=== PATIENT | male | born 1995 | race Caucasian/White ===

== ENCOUNTER 2022-03-26 10:59 | Emergency (ER) | payer MEDICAID, SELFPAY ==
[2022-03-26 11:03] VITALS: BP 135/89; PULSE 78; RESP 18; TEMP 36.7; O2SAT 99
[2022-03-26 11:47] LABS: Influenza A QL RT-PCR Negative (Negative); Influenza B QL RT-PCR Negative (Negative); RSV RNA, RT-PCR Negative (Negative); SARS-CoV-2 RNA PCR Negative
[2022-03-26] MEDS: SODIUM CHLORIDE 0.9% IV 1,000 ML 999 ML IV CONT (12:31)
[2022-03-26] MEDS: ONDANSETRON INJ 4 MG/2 ML VIAL IV PUSH (12:38)
[2022-03-26 12:51] LABS: Add Urine Microscopic? YES; Appearance Urine Clear (Clear); Bilirubin Urine Negative (Negative); Blood Urine Negative (Negative); Color Urine Light Yellow (Yellow); Glucose Urine UA Negative (Negative); Ketones Urine 1+ mg/dL (Negative); Leukocyte Esterase Ur Negative LEU/UL (Negative); Nitrate Urine Negative (Negative); Protein Urine Negative (Negative)
[2022-03-26 13:03] LABS: Bacteria Urine Trace /hpf; Mucus Urine Heavy /lpf; WBC Urine 0-3 /hpf
[2022-03-26 13:11] LABS: Barbiturate Screen Urine Negative (Negative); Benzodiazepines Screen Urine Negative (Negative)
[2022-03-26 13:14] LABS: Phenytoin Dilantin < 3 ug/mL (10-20)
[2022-03-26 13:43] LABS: Cannabinoid Screen Urine Positive (Negative); Cocaine Screen Urine Negative (Negative); Methadone Screen Urine Negative (Negative); Opiate Screen Urine Negative (Negative); Phencyclidine Screen Urine Negative (Negative)
--- NOTE | 2022-03-26 13:49 | ED.GENADULT ---
HPI - General Adult General Chief complaint: Upper Respiratory Infection Stated complaint: flu like sxs X2 days Time Seen by Provider: 03/26/22 11:07 History of Present Illness HPI narrative: 26-year-old male history of seizure disorder presents to the emergency room via EMS for evaluation of not feeling well . Patient states that he was recently incarcerated and has not been feeling well since. States has not been taking his Dilantin due to his recent incarceration. Patient also endorses nausea. States that he smoked marijuana that was possibly laced with another substance just prior to arrival. Related Data Allergies Allergy/AdvReac Type Severity Reaction Status Date / Time No Known Allergies Allergy Unverified 03/26/22 12:02 Review of Systems Review of Systems: CONSTITUTIONAL: Denies fever, chills, or sweats. EYES: Denies visual changes, redness, or discharge. ENT: Denies rhinorrhea, congestion, sore throat, or otalgia. CARDIOVASCULAR: Denies chest pain, palpitations, or edema. RESPIRATORY: Denies cough or dyspnea. GASTROINTESTINAL: Reports nausea GENITOURINARY: Denies dysuria or hematuria. SKIN: Denies rash or itching. MUSCULOSKELETAL: Denies back pain, joint pain, or myalgia. NEUROLOGIC: Denies headache, numbness, dizziness, or weakness. PSYCHIATRIC: Denies anxiety or depression. Exam Narrative: GENERAL: Disheveled HEAD: Normocephalic, atraumatic. EYES: Conjunctivae normal, PERRLA and EOMI. CHEST: Clear to auscultation. No respiratory distress. No wheezes rales or rhonchi. HEART: Regular rate and rhythm. No murmur heard. Normal peripheral pulses. EXTREMITIES: Normal range of motion. No edema. No clubbing or cyanosis SKIN: Warm, dry, no rash. No noted wounds NEURO: No focal deficits. Alert and oriented x3. MAEW. CN's II-XI intact bilaterally, normal gait PSYCH: Cooperative. Flat affect. Course Course Emergency Course: 1515: Clinical coordinator at bedside to help patient with resources for securing a temporary living situation. Vital Signs Vital signs: Vital Signs Temperature 36.7 C 03/26/22 11:03 Pulse Rate 78 03/26/22 11:03 Respiratory Rate 18 03/26/22 11:03 Blood Pressure 135/89 03/26/22 11:03 Pulse Oximetry 99 03/26/22 11:03 Temperature 36.7 C 03/26/22 11:03 Pulse Rate 78 03/26/22 11:03 Respiratory Rate 18 03/26/22 11:03 Blood Pressure 135/89 03/26/22 11:03 Pulse Oximetry 99 03/26/22 11:03 Oxygen Delivery Room Air 03/26/22 12:08 Medical Decision Making Vital Signs Vital Signs: Vital Signs Temperature 36.7 C 03/26/22 11:03 Pulse Rate 78 03/26/22 11:03 Respiratory Rate 18 03/26/22 11:03 Blood Pressure 135/89 03/26/22 11:03 Pulse Oximetry 99 03/26/22 11:03 Temperature 36.7 C 03/26/22 11:03 Pulse Rate 78 03/26/22 11:03 Respiratory Rate 18 03/26/22 11:03 Blood Pressure 135/89 03/26/22 11:03 Pulse Oximetry 99 03/26/22 11:03 Oxygen Delivery Room Air 03/26/22 12:08 Lab Data Labs: Lab Results 03/26/22 03/26/22 03/26/22 Range/Units 11:07 12:30 12:31 Urine Color Light yellow (Yellow) Urine Appearance Clear (Clear) Urine pH 7.0 (5.0-9.0) Ur Specific Ajo 1.020 (1.001-1.035) Urine Protein Negative (Negative) mg/dL Urine Glucose (UA) Negative (Negative) mg/dL Urine Ketones 1+ H (Negative) mg/dL Ur Blood (Man) Negative (Negative) Urine Nitrate Negative (Negative) Urine Bilirubin Negative (Negative) Urine Urobilinogen 1.0 (<2.0) mg/dL Leukocyte Esterase Rfl Negative (Negative) DEVIKA/UL Urine RBC 3-5 H (0-2) /hpf Urine WBC 0-3 /hpf Urine Bacteria Trace /hpf Urine Mucus Heavy H /lpf Urine Opiates Screen Negative (Negative) Urine Methadone Screen Negative (Negative) Ur Barbiturates Screen Negative (Negative) Phenytoin (10-20) ug/mL Valproic Acid (50-120) ug/mL Carbamazepine Ur Phencyclidin
[2022-03-26 14:09] LABS: Amphetamine Screen Urine Positive (Negative)
[2022-03-26 14:16] LABS: Valproic Acid < 10.0 ug/mL (50-120)
--- NOTE | 2022-03-26 15:11 | PC.NURSE ---
Ciera with Care Coordination at bedside to discuss resources available considering patient is homeless
[2022-03-26 16:04] VITALS: BP 124/76; PULSE 74; RESP 16; TEMP 36.7; O2SAT 98
[2022-03-30 10:08] LABS: Carbamazepine Tegretol <0.2 mcg/mL (4.0-12.0)
== END 2022-03-26 16:06 | disposition home or self-care (01) ==
PROVIDERS: Emergency Provider Nurse Practitioner Family
DX: R11.0 Nausea (principal); G40.909 Epilepsy, unspecified, not intractable, without status epilepticus; Z20.822 Contact with and (suspected) exposure to COVID-19
CPT/HCPCS: 36415; 80156; 80164; 80185; 80307; 81001; 87637; 96361; 96374; 99284; J2405; J7030